=== PATIENT | female | born 1965 | race Caucasian/White ===

== ENCOUNTER 2020-03-18 10:03 | Emergency (ER) | payer MEDICARE, MEDICAID ==
[2020-03-18] MEDS ORDERED: LORazepam 2 MG/ML SDV IVPUSH ONE (10:47)
[2020-03-18] MEDS ORDERED: methylPREDNISolone Sodium Succinate 125 MG/2 ML SDV IVPUSH ONE (10:48)
[2020-03-18] MEDS ORDERED: Albuterol/Ipratropium 3.0-0.5 MG/3 ML Neb Soln NEB ONE (10:49)
--- NOTE | 2020-03-18 11:09 | EDM.PDOC ---
ED HPI GENERAL MEDICAL PROBLEM - General Chief Complaint: Respiratory Problem Stated Complaint: AMBULANCE Time Seen by Provider: 03/18/20 10:25 Source of Information: Reports: Patient, RN History Limitations: Reports: No Limitations - History of Present Illness INITIAL COMMENTS - FREE TEXT/NARRATIVE: 54 year old female with a PMH of heart failure, COPD, pneumonia, anxiety, depre ssion and GERD presents to the ER by ambulance for complaints of shortness of breath and anxiety. Patient reports she wake up this morning with a panic attack. She states that she takes clonazepam 1 mg 4 times daily and her last pill was yesterday morning. Patient reports she basically depends on her clonazepam to get through the day. She reports being shaky this morning to the point where she couldn't even take her nebulizer. COPD is oxygen dependent at home on 4 L oxygen nasal cannula.She was able to take her inhalers before calling the ambulance. She reports her shortness of breath has been present but got worsened without her anxiety flaring up. she quit smoking about 4 years ago. She has a refill for clonazepam at a pharmacy. She denies any fevers, chest pain, palpitations, leg swelling,sputum production, chills or sweats. She reports the beginning of dyskinesia which is being monitored by her psychiatrist as she is on Abilify and the dose is being tapered. She is also be worked on by her primary for sudden weight lost. Onset: Today Onset Date: 03/18/20 Onset Time: 08:00 Duration: Hour(s): Location: Reports: Chest Worsens with: Reports: Other (anxiety) Associated Symptoms: Reports: Shortness of Breath Treatments LITIGATION MANAGER: Reports: Breathing Treatments - Related Data Allergies Allergy/AdvReac Type Severity Reaction Status Date / Time tramadol Allergy Tremors Verified 03/18/20 10:14 morphine AdvReac Vomiting Verified 03/18/20 10:14 theophylline AdvReac Headache Verified 03/18/20 10:14 Home Meds: Home Meds ARIPiprazole [Abilify] 30 mg PO DAILY 04/09/18 [History] Omeprazole 40 mg PO DAILY 04/09/18 [History] Sertraline HCl [Zoloft] 150 mg PO DAILY 04/09/18 [History] Albuterol [Ventolin HFA] 2 puff INH Q6H PRN 09/17/18 [History] Albuterol/Ipratropium [DuoNeb 3.0-0.5 MG/3 ML] 1 vial INH Q6H PRN 09/17/18 [History] Budesonide 1 mg IH BID 09/17/18 [History] Calcium Carbonate/Vitamin D3 [Calcium 600-Vit D3 400 Tablet] 1 tab PO DAILY 09/17/18 [History] Cholecalciferol (Vitamin D3) [Vitamin D3] 1,000 units PO BID 09/17/18 [History] Formoterol Fumarate [Perforomist] 1 vial INH BID 09/17/18 [History] clonazePAM [Clonazepam] 1 mg PO QID 09/17/18 [History] estradioL [Estrace] 0.5 mg PO ASDIRECTED 09/17/18 [History] oxyCODONE ER [OxyCONTIN] 10 mg PO Q12H PRN 03/24/19 [History] ARIPiprazole [Aripiprazole] 15 mg PO DAILY 03/18/20 [History] Roflumilast [Daliresp] 500 mg PO DAILY 03/18/20 [History] Past Medical History HEENT History: Reports: None Cardiovascular History: Reports: Heart Failure Respiratory History: Reports: COPD, Pneumonia, Recurrent Gastrointestinal History: Reports: Gastritis, GERD, Hepatitis, PUD, Other (See Below) Other Gastrointestinal History: HX OF HEP C Genitourinary History: Reports: Other (See Below) Other Genitourinary History: OVERACTIVE BLADDER STARS COORDINATOR History: Reports: Musculoskeletal History: Neurological History: Reports: None Psychiatric History: Reports: Anxiety, Depression Endocrine/Metabolic History: Reports: None Hematologic History: Reports: None Immunologic History: Reports: None Oncologic (Cancer) History: Reports: None Dermatologic History: Reports: None - Infectious Disease History Infectious Disease History: Reports: Chicken Pox - Past Surgical History Head Surgeries/Procedures: Reports: None GI Surgical History: Reports: EGD, Hernia Repair/Other Other GI Surgeries/Procedures: hernia Female Surgical History: Reports: D&C, Hysterectomy Social & Family History - Family History Family Medical History: Noncontributory - Caffeine Use Caffeine Use: Reports: None - Living Situation & Occupation Living situation: Reports: Single, Alone Occupation: Disabled ED ROS GENERAL - Review of Systems Review Of Systems: Comprehensive ROS is negative, except as noted in HPI. ED EXAM, GENERAL - Physical Exam Exam: See Below Exam Limited By: No Limitations General Appearance: Alert, Anxious, Moderate Distress Eye Exam: Bilateral Eye: PERRL Ears: Normal External Exam, Normal Canal, Hearing Grossly Normal, Normal TMs Nose: Normal Inspection, Normal Mucosa, No Blood Throat/Mouth: Normal Inspection, Other (mild whites noted on the tongue but not on the roof or bucal mucosa of the mouth. Patient is being treated for thrush) Head: Atraumatic, Normocephalic Neck: Normal Inspection, Supple, Non-Tender, Full Range of Motion Respiratory/Chest: Decreased Breath Sounds, Crackles, Rhonchi, Wheezing. No: Rales, Accessory Muscle Use, Retractions, Prolonged Expiration Cardiovascular: Normal Peripheral Pulses, Regular Rate, Rhythm, No Edema, No JVD, No Murmur Peripheral Pulses: 2+: Posterior Tibial (L), Posterior Tibial (R), Dorsalis Pedis (L), Dorsalis Pedis (R) GI/Abdominal: Normal Bowel Sounds, Soft, Non-Tender Neurological: Alert, Oriented, CN II-XII Intact Psychiatric: Anxious Skin Exam: Warm, Intact Lymphatic: No Adenopathy Course - Vital Signs Last Recorded V/S: Last Vital Signs Temp 97.2 F 03/18/20 10:03 Pulse 105 H 03/18/20 10:03 Resp 24 H 03/18/20 10:03 BP 189/112 H 03/18/20 10:03 Pulse Ox 98 03/18/20 10:03 - Orders/Labs/Meds Orders: Active Orders 24 hr Category Date Time Status RT Aerosol Therapy [RC] ASDIRECTED Care 03/18/20 10:49 Active Chest 2V [CR] Urgent Exams 03/18/20 10:41 Ordered CBC WITH AUTO DIFF [HEME] Stat Lab 03/18/20 10:46 Received CMP [COMPREHENSIVE METABOLIC PN,CMP] [CHEM] Stat Lab 03/18/20 10:46 Received Albuterol/Ipratropium [DuoNeb 3.0-0.5 MG/3 ML] Med 03/18/20 10:49 Once 3 ml NEB ONETIME ONE Meds: Medications Discontinued Medications Generic Name Dose Route Start Last Admin Trade Name Freq PRN Reason Stop Dose Admin Lorazepam 1 mg 03/18/20 10:47 Ativan IVPUSH 03/18/20 10:48 ONETIME ONE Methylprednisolone Sodium Succinate 125 mg 03/18/20 10:48 Solu-Medrol IVPUSH 03/18/20 10:49 ONETIME ONE - Re-Assessments/Exams Free Text/Narrative Re-Assessment/Exam: 54 year olf female who presents to the ER with complaints of anxiety and SOB. She was administered Ativan 1 mg IV as she had missed four doses of her clonazepam 1 mg and also Solumedrol and Duoned. Patient reports relief symptoms. Labs and chest xray results reviewed with patient. Initiated prednisone 40 mg daily x 5 days. She will pickup her clonazepam. Followup with PCP in 2-3 days. Continue medications as prescribed by PCP. Patient verbalized understanding. Departure - Departure Time of Disposition: 12:21 Disposition: Home, Self-Care 01 Condition: Good Clinical Impression: Anxiety attack COPD (chronic obstructive pulmonary disease) Qualifiers: COPD type: unspecified COPD Qualified Code(s): J44.9 - Chronic obstructive pulmonary disease, unspecified - Discharge Information Instructions: Chronic Obstructive Pulmonary Disease Exacerbation, [id number], Living With Anxiety Additional Instructions: Initiated prednisone 40 mg daily x 5 days. She will pickup her clonazepam from the pharmacy. Continue home medications as per PCP. Followup with PCP in 2-3 days. Sepsis Event Note (ED) - Evaluation Sepsis Screening Result: Possible Sepsis Risk - Focused Exam Vital Signs: Vital Signs Temp Pulse Resp BP Pulse Ox 03/18/20 10:03 97.2 F 105 H 24 H 189/112 H 98 - My Orders Last 24 Hours: My Active Orders 03/18/20 10:41 Chest 2V [CR] Urgent 03/18/20 10:46 CBC WITH AUTO DIFF [HEME] Stat CMP [COMPREHENSIVE METABOLIC PN,CMP] [CHEM] Stat 03/18/20 10:49 RT Aerosol Therapy [RC] ASDIRECTED Albuterol/Ipratropium [DuoNeb 3.0-0.5 MG/3 ML] 3 ml NEB ONETIME ONE - Assessment/Plan Last 24 Hours: My Active Orders 03/18/20 10:41 Chest 2V [CR] Urgent 03/18/20 10:46 CBC WITH AUTO DIFF [HEME] Stat CMP [COMPREHENSIVE METABOLIC PN,CMP] [CHEM] Stat 03/18/20 10:49 RT Aerosol Therapy [RC] ASDIRECTED Albuterol/Ipratropium [DuoNeb 3.0-0.5 MG/3 ML] 3 ml NEB ONETIME ONE
[2020-03-18 11:12] LABS: ANION GAP 4.3 mEq/L (7-13); CHLORIDE,CL 95 mmol/L (98-107); SODIUM,NA 140 mmol/L (136-145)
--- NOTE | 2020-03-18 11:36 | CR ---
EXAMINATION: Chest 1V Frontal SEX: Female AGE: 54 years CLINICAL HISTORY: 54-year-old female complaining of shortness of breath. History "severe COPD". Comparison exam 09 July 2018. Interpretation: Generalized air trapping. Symmetrically prominent proximal pulmonary artery segments (pulmonary artery hypertension?). Normal cardiac silhouette. (External aging room operator leads). Left-sided aortic arch. No pulmonary vascular congestion, cephalization of flow, alveolar edema or dependent new pleural fluid accumulation. No new lung mass, hilar lymphadenopathy or focal lobar pneumonia. No atelectasis/collapse. No pneumothorax or pneumomediastinum. Midline tracheal bronchial airway unremarkable. CONCLUSION: No acute new cardiopulmonary abnormality since 09 July 2018 CXR. COPD.
== END 2020-03-18 12:57 | disposition home or self-care (01) ==
LOC: DL.ED 10:03
DX: J44.9 Chronic obstructive pulmonary disease, unspecified (principal); F41.9 Anxiety disorder, unspecified; I50.9 Heart failure, unspecified; K21.9 Gastro-esophageal reflux disease without esophagitis; F32.9 Major depressive disorder, single episode, unspecified; Z88.5 Allergy status to narcotic agent; Z88.1 Allergy status to other antibiotic agents; Z79.899 Other long term (current) drug therapy
CPT/HCPCS: 36415; 71045; 80053; 85025; 94640; 96374; 96375; 99285; J2060; J2930; 99284; J7620-GY

== ENCOUNTER 2021-04-13 10:11 | Emergency (ER) | payer MEDICARE, MEDICAID ==
[2021-04-13] MEDS ORDERED: Sodium Chloride 0.9% 10 ML Syringe FLUSH PRN (10:48)
[2021-04-13] MEDS ORDERED: LORazepam 2 MG/ML SDV IVPUSH ONE (10:53)
[2021-04-13 11:20] LABS: ANION GAP 9.4 mEq/L (7-13); CHLORIDE,CL 97 mmol/L (98-107); SODIUM,NA 139 mmol/L (136-145)
[2021-04-13] MEDS ORDERED: Iopamidol 612 MG/ML 100 ML Bottle IVPUSH ONE (11:24)
[2021-04-13] MEDS ORDERED: Sodium Chloride 0.9% 1,000 ML IV ONE (11:26)
[2021-04-13] MEDS ORDERED: Magnesium Sulfate/Water 2 GM in Premix Bag 1 BAG IV ONE (11:58)
--- NOTE | 2021-04-13 12:32 | CT ---
PROCEDURE INFORMATION: Exam: CT Chest With Contrast; Diagnostic Exam date and time: 04/13/2021 11:32 AM Age: 55 years old Clinical indication: Other: Left upper abdominal pain, unexplained wt loss TECHNIQUE: Imaging protocol: Diagnostic computed tomography of the chest with contrast. Radiation optimization: All CT scans at this facility use at least one of these dose optimization techniques: automated exposure control; mA and/or kV adjustment per patient size (includes targeted exams where dose is matched to clinical indication); or iterative reconstruction. Contrast material: ISOVUE 300; Contrast volume: 75 ml; Contrast route: INTRAVENOUS (IV); COMPARISON: CT Chest Abdomen Pelvis w Cont 07/25/2019 10:29 AM FINDINGS: Limitations: None. Trachea: Normal. Bronchial tree: Normal. Lungs: Diffuse centrilobular pulmonary emphysema and lung hyperinflation. The lungs are clear. Pleural spaces: Normal. Heart: Normal. Coronary arteries: Normal. Aorta: Normal caliber. No defects. Minimal atherosclerosis. Great vessels off aortic arch: Very mild atherosclerosis limited to the origins of the great vessels, also extending into the most proximal portions. Lymph nodes: No enlarged or otherwise suspicious lymph nodes. Bones/joints: No acute fracture or suspicious osseous lesion. Soft tissues: Normal. IMPRESSION: Emphysema and mild atherosclerosis. No acute disease or suspicious finding. PROCEDURE INFORMATION: Exam: CT Abdomen And Pelvis With Contrast Exam date and time: 04/13/2021 11:32 AM Age: 55 years old Clinical indication: Other: Left upper abdominal pain, unexplained wt loss TECHNIQUE: Imaging protocol: Computed tomography of the abdomen and pelvis with contrast. The study was augmented with delayed contrast-enhanced imaging of the kidneys. Radiation optimization: All CT scans at this facility use at least one of these dose optimization techniques: automated exposure control; mA and/or kV adjustment per patient size (includes targeted exams where dose is matched to clinical indication); or iterative reconstruction. Contrast material: ISOVUE 300; Contrast volume: 75 ml; Contrast route: INTRAVENOUS (IV); COMPARISON: CT Chest Abdomen Pelvis w Cont 07/25/2019 10:29 AM FINDINGS: Limitations: None. Liver: Normal. Gallbladder and bile ducts: Normal. Pancreas: Normal. Spleen: Normal. Adrenal glands: Normal. Kidneys and ureters: Chronic unchanged 6 mm uniformly low-density right upper pole renal cortical lesion, otherwise, normal kidneys and ureters. Stomach and bowel: Normal. Appendix: No evidence of appendicitis. Intraperitoneal space: No ascites, pneumoperitoneum or peritoneal lesion. Vasculature: Mild atherosclerosis of the abdominal aorta and branch vessels. The vessels have normal caliber and there are no occlusions, dissection or suspicious stenosis. Lymph nodes: None enlarged or otherwise suspicious. Urinary bladder: Normal. Reproductive: Absent uterus. Ovaries are not identified. Bones/joints: No acute fracture or suspicious osseous lesion. Soft tissues: No mass or abdominal hernia. IMPRESSION: 1. No acute abnormalities or suspicious findings. No mass or adenopathy. 2. Incidental findings include atherosclerosis and a chronic subcentimeter right renal cortical lesion that is presumed benign and may be ignored.
--- NOTE | 2021-04-13 13:16 | EDM.PDOC ---
"Scribed by Jaycee Polanco 04/13/21 1266 for Toro Osorio MD ED HPI GENERAL MEDICAL PROBLEM - General Chief Complaint: Abdominal Pain Stated Complaint: COPD / TROUBLE BREATHING / LOW POTASSIUM Time Seen by Provider: 04/13/21 10:37 Source of Information: Reports: Patient, RN Notes Reviewed - History of Present Illness INITIAL COMMENTS - FREE TEXT/NARRATIVE: 55 y/o F c/o L upper quad abd pn x 1 week. The pain is constant, 7/10, sharp in nature and radiates over the entire abd. Reports normal food intake and normal urination and defecation. Hx of H. Pylori, peptic ulcers, anxiety, hysterectomy, COPD. Denies fever, NVD, cough, chills, drugs, etoh, cp, lau, vision prob, flank pain, pelvic pn, extremity pain. Duration: Week(s): Location: Reports: Abdomen Quality: Reports: Sharp Severity: Moderate Improves with: Reports: None Worsens with: Reports: Movement Associated Symptoms: Reports: No Other Symptoms abdomen Pain Score (Numeric/FACES): 7 - Related Data Allergies Allergy/AdvReac Type Severity Reaction Status Date / Time tramadol Allergy Tremors Verified 04/13/21 10:31 morphine AdvReac Vomiting Verified 04/13/21 10:31 theophylline AdvReac Headache Verified 04/13/21 10:31 Home Meds: Home Meds Omeprazole 40 mg PO DAILY 04/09/18 [History] Sertraline HCl [Zoloft] 150 mg PO DAILY 04/09/18 [History] Albuterol [Ventolin HFA] 2 puff INH Q6H PRN 09/17/18 [History] Albuterol/Ipratropium [DuoNeb 3.0-0.5 MG/3 ML] 1 vial INH Q6H PRN 09/17/18 [History] Budesonide 1 mg IH BID 09/17/18 [History] Calcium Carbonate/Vitamin D3 [Calcium 600-Vit D3 400 Tablet] 1 tab PO DAILY 09/17/18 [History] Cholecalciferol (Vitamin D3) [Vitamin D3] 1,000 units PO BID 09/17/18 [History] Formoterol Fumarate [Perforomist] 1 vial INH BID 09/17/18 [History] clonazePAM [Clonazepam] 1 mg PO QID 09/17/18 [History] estradioL [Estrace] 0.5 mg PO ASDIRECTED 09/17/18 [History] oxyCODONE ER [OxyCONTIN] 10 mg PO Q12H PRN 03/24/19 [History] Roflumilast [Daliresp] 500 mg PO DAILY 03/18/20 [History] Brexpiprazole [Rexulti] 0.5 mg PO DAILY 04/13/21 [History] Potassium Chloride 20 meq PO DAILY 04/13/21 [History] Past Medical History HEENT History: Reports: None Cardiovascular History: Reports: Heart Failure Respiratory History: Reports: COPD, Pneumonia, Recurrent Gastrointestinal History: Reports: Gastritis, GERD, Hepatitis, PUD, Other (See Below) Other Gastrointestinal History: HX OF HEP C Genitourinary History: Reports: Other (See Below) Other Genitourinary History: OVERACTIVE 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: Musculoskeletal History: Other Musculoskeletal History: Tardive Dyskenesia Neurological History: Reports: None Psychiatric History: Reports: Anxiety, Depression Endocrine/Metabolic History: Reports: None Hematologic History: Reports: None Immunologic History: Reports: None Other Immunologic History: hx of Hepatitis C Oncologic (Cancer) History: Reports: None Dermatologic History: Reports: None - Infectious Disease History Infectious Disease History: Reports: Chicken Pox - Past Surgical History Head Surgeries/Procedures: Reports: None GI Surgical History: Reports: EGD, Hernia Repair/Other Other GI Surgeries/Procedures: hernia Female Surgical History: Reports: D&C, Hysterectomy Social & Family History - Family History Family Medical History: No Pertinent Family History - Caffeine Use Caffeine Use: Reports: None - Living Situation & Occupation Living situation: Reports: Single, Alone Occupation: Disabled ED ROS GENERAL - Review of Systems Review Of Systems: Comprehensive ROS is negative, except as noted in HPI. ED EXAM, GI/ABD - Physical Exam Exam: See Below Exam Limited By: No Limitations General Appearance: Alert Eyes: Bilateral: Normal Appearance Nose: Normal Inspection, Normal Mucosa Throat/Mouth: Normal Lips, Normal Teeth, Other (Dry mucus membranes, tongue dry and furrowed) Head: Atraumatic, Normocephalic Neck: Supple, Non-Tender Respiratory/Chest: No Respiratory Distress, Lungs Clear, Normal Breath Sounds Cardiovascular: Normal Peripheral Pulses, Regular Rate, Rhythm, No Edema, No JVD GI/Abdominal Exam: Soft, No Organomegaly, Tender (Female) Exam: Deferred Rectal (Female) Exam: Deferred Back Exam: Normal Inspection, Full Range of Motion Extremities: Normal Inspection, Normal Range of Motion, No Pedal Edema Neurological: Alert, Oriented Psychiatric: Anxious Skin Exam: Warm, Dry, Intact Course - Vital Signs Last Recorded V/S: Last Vital Signs Temp 98.0 F 04/13/21 10:23 Pulse 124 H 04/13/21 10:23 Resp 24 H 04/13/21 10:23 BP 119/95 H 04/13/21 10:23 Pulse Ox 97 04/13/21 10:23 - Orders/Labs/Meds Orders: Active Orders 24 hr Category Date Time Status Peripheral IV Care [RC] . DIRECTED Care 04/13/21 10:49 Active UA RFX BEENA AND CULT IF INDIC [URIN] Stat Lab 04/13/21 13:00 Received Magnesium Sulfate/Water [Magnesium Sulfate in Water 2 Med 04/13/21 11:58 Active GM/50 ML] 2 gm Premix Bag 1 bag IV ONETIME Sodium Chloride 0.9% [Saline Flush] Med 04/13/21 10:48 Active 10 ml FLUSH ASDIRECTED PRN Peripheral IV Insertion Adult [OM.PC] Stat Oth 04/13/21 10:49 Ordered Medication Orders Magnesium Sulfate 2 gm/ Premix 50 mls @ 25 mls/hr IV ONETIME ONE Stop: 04/13/21 13:57 Last Admin: 04/13/21 12:07 Dose: 25 mls/hr Documented by: XOCHITL Sodium Chloride (Sodium Chloride 0.9% 10 Ml Syringe) 10 ml FLUSH ASDIRECTED PRN PRN Reason: Keep Vein Open Last Admin: 04/13/21 11:14 Dose: 10 ml Documented by: XOCHITL Labs: Laboratory Tests 04/13/21 04/13/21 04/13/21 Range/Units 10:46 10:46 10:46 WBC 7.5 (5.0-10.0) 10^3/uL RBC 4.56 (4.2-5.4) 10^6/uL Hgb 13.9 (12.0-16.0) g/dL Hct 42.9 (37.0-47.0) % MCV 94.1 (80-100) fL MCH 30.5 (27.0-34.0) pg MCHC 32.4 L (33.0-35.0) g/dL Plt Count 269 (150-450) 10^3/uL Neut % (Auto) 80.9 H (42.2-75.2) % Lymph % (Auto) 12.2 L (20.5-50.1) % [place] % (Auto) 5.6 (2-8) % Eos % (Auto) 0.8 L (1.0-3.0) % Baso % (Auto) 0.5 (0.0-1.0) % Sodium 139 (136-145) mmol/L Potassium 4.4 (3.5-5.1) mmol/L Chloride 97 L (98-107) mmol/L Carbon Dioxide 37 H (21-32) mmol/L Anion Gap 9.4 (7-13) mEq/L BUN 10 (7-18) mg/dL Creatinine 0.56 (0.55-1.02) mg/dL Est Cr Clr Drug Dosing 69.74 mL/min Estimated GFR (MDRD) > 60 BUN/Creatinine Ratio 17.9 (No establ ref range) Glucose 118 H (70-99) mg/dL Lactic Acid 0.8 (0.4-2.0) mmol/L Calcium 9.0 (8.5-10.1) mg/dL Phosphorus 3.5 (2.6-4.7) mg/dL Magnesium 1.6 L (1.8-2.4) mg/dL Total Bilirubin 0.4 (0.2-1.0) mg/dL AST 18 (15-37) U/L ALT 24 (14-59) U/L Alkaline Phosphatase 85 (46-116) U/L Total Protein 7.6 (6.4-8.2) g/dL Albumin 3.9 (3.4-5.0) g/dL Globulin 3.7 Albumin/Globulin Ratio 1.1 Amylase 45 (25-115) U/L Lipase 86 (73-393) U/L Urine Color (YELLOW) Urine Appearance (CLEAR) Urine pH (5.0-9.0) Ur Specific [place] (1.005-1.030) Urine Protein (NEGATIVE) Urine Glucose (UA) (NEGATIVE) Urine Ketones (NEGATIVE) Urine Occult Blood (NEGATIVE) Urine Nitrite (NEGATIVE) Urine Bilirubin (NEGATIVE) Urine Urobilinogen (0.2-1.0) mg/dL Ur Leukocyte Esterase (NEGATIVE) 04/13/21 Range/Units 13:00 WBC (5.0-10.0) 10^3/uL RBC (4.2-5.4) 10^6/uL Hgb (12.0-16.0) g/dL Hct (37.0-47.0) % MCV (80-100) fL MCH (27.0-34.0) pg MCHC (33.0-35.0) g/dL Plt Count (150-450) 10^3/uL Neut % (Auto) (42.2-75.2) % Lymph % (Auto) (20.5-50.1) % [place] % (Auto) (2-8) % Eos % (Auto) (1.0-3.0) % Baso % (Auto) (0.0-1.0) % Sodium (136-145) mmol/L Potassium (3.5-5.1) mmol/L Chloride (98-107) mmol/L Carbon Dioxide (21-32) mmol/L Anion Gap (7-13) mEq/L BUN (7-18) mg/dL Creatinine (0.55-1.02) mg/dL Est Cr Clr Drug Dosing mL/min Estimated GFR (MDRD) BUN/Creatinine Ratio (No establ ref range) Glucose (70-99) mg/dL Lactic Acid (0.4-2.0) mmol/L Calcium (8.5-10.1) mg/dL Phosphorus (2.6-4.7) mg/dL Magnesium (1.8-2.4) mg/dL Total Bilirubin (0.2-1.0) mg/dL AST (15-37) U/L ALT (14-59) U/L Alkaline Phosphatase (46-116) U/L Total Protein (6.4-8.2) g/dL Albumin (3.4-5.0) g/dL Globulin Albumin/Globulin Ratio Amylase (25-115) U/L Lipase (73-393) U/L Urine Color Yellow (YELLOW) Urine Appearance Clear (CLEAR) Urine pH 7.0 (5.0-9.0) Ur Specific [place] 1.015 (1.005-1.030) Urine Protein Negative (NEGATIVE) Urine Glucose (UA) Negative (NEGATIVE) Urine Ketones 40 H (NEGATIVE) Urine Occult Blood Small H (NEGATIVE) Urine Nitrite Negative (NEGATIVE) Urine Bilirubin Negative (NEGATIVE) Urine Urobilinogen 0.2 (0.2-1.0) mg/dL Ur Leukocyte Esterase Negative (NEGATIVE) Meds: Medications Generic Name Dose Route Start Last Admin Trade Name Freq PRN Reason Stop Dose Admin Magnesium Sulfate 2 gm/ Premix 50 mls @ 25 mls/hr 04/13/21 11:58 04/13/21 12:07 IV 04/13/21 13:57 25 mls/hr ONETIME ONE Administration Sodium Chloride 10 ml 04/13/21 10:48 04/13/21 11:14 Sodium Chloride 0.9% 10 Ml Syringe FLUSH 10 ml ASDIRECTED PRN Administration Keep Vein Open Discontinued Medications Generic Name Dose Route Start Last Admin Trade Name Freq PRN Reason Stop Dose Admin Sodium Chloride 1,000 mls @ 999 mls/hr 04/13/21 11:26 04/13/21 12:09 Normal Saline IV 04/13/21 12:26 200 mls/hr .BOLUS ONE Infusion Iopamidol 100 ml 04/13/21 11:24 04/13/21 11:54 Iopamidol 612 Mg/Ml 100 Ml Bottle IVPUSH 04/13/21 11:25 75 ml ONETIME ONE Administration Lorazepam 1 mg 04/13/21 10:53 04/13/21 11:13 Lorazepam 2 Mg/Ml Sdv IVPUSH 04/13/21 10:54 1 mg ONETIME ONE Administration - Radiology Interpretation Free Text/Narrative:: [facility] Final Radiology Report Call: [phone] assistance Online chat: [email or web address] Name: BETI LLAMAS Age: 55Years F Date: 04/13/2021 SSN: -- : 1965 Study: CT CHEST ABDOMEN PELVIS W CONT Requesting Physician: TORO OSORIO Images: [phone] Addl Studies: [id number] - CT CHEST W (1) Provided Clinical History: Left upper abdominal pain, unexplained wt loss Contrast: With Contrast Medium: Isovue 300 Contrast Amount: 75 mL Contrast Method: Intravenous (IV) Page 1 of 3 PROCEDURE INFORMATION: Exam: CT Chest With Contrast; Diagnostic Exam date and time: 04/13/2021 11:32 AM Age: 55 years old Clinical indication: Other: Left upper abdominal pain, unexplained wt loss TECHNIQUE: Imaging protocol: Diagnostic computed tomography of the chest with contrast. Radiation optimization: All CT scans at this facility use at least one of these dose optimization techniques: automated exposure control; mA and/or kV adjustment per patient size (includes targeted exams where dose is matched to clinical indication); or iterative reconstruction. Contrast material: ISOVUE 300; Contrast volume: 75 ml; Contrast route: INTRA VENOUS (IV); COMPARISON: CT Chest Abdomen Pelvis w Cont 07/25/2019 10:29 AM FINDINGS: Limitations: None. Trachea: Normal. Bronchial tree: Normal. Lungs: Diffuse centrilobular pulmonary emphysema and lung hyperinflation. The lungs are clear. Pleural spaces: Normal. Heart: Normal. Coronary arteries: Normal. Aorta: Normal caliber. No defects. Minimal atherosclerosis. Great vessels off aortic arch: Very mild atherosclerosis limited to the origins of the great vessels, also extending into the most proximal portions. Lymph nodes: No enlarged or otherwise suspicious lymph nodes. BETI LLAMAS | Final Radiology Report Page 2 of 3 Bones/joints: No acute fracture or suspicious osseous lesion. Soft tissues: Normal. IMPRESSION: Emphysema and mild atherosclerosis. No acute disease or suspicious finding. PROCEDURE INFORMATION: Exam: CT Abdomen And Pelvis With Contrast Exam date and time: 04/13/2021 11:32 AM Age: 55 years old Clinical indication: Other: Left upper abdominal pain, unexplained wt loss TECHNIQUE: Imaging protocol: Computed tomography of the abdomen and pelvis with contrast. The study was augmented with delayed contrast-enhanced imaging of the kidneys. Radiation optimization: All CT scans at this facility use at least one of these dose optimization techniques: automated exposure control; mA and/or kV adjustment per patient size (includes targeted exams where dose is matched to clinical indication); or iterative reconstruction. Contrast material: ISOVUE 300; Contrast volume: 75 ml; Contrast route: INTRAVENOUS (IV); COMPARISON: CT Chest Abdomen Pelvis w Cont 07/25/2019 10:29 AM FINDINGS: Limitations: None. Liver: Normal. Gallbladder and bile ducts: Normal. Pancreas: Normal. Spleen: Normal. Adrenal glands: Normal. Kidneys and ureters: Chronic unchanged 6 mm uniformly low-density right upper pole renal cortical lesion, otherwise, normal kidneys and ureters. Stomach and bowel: Normal. Appendix: No evidence of appendicitis. Intraperitoneal space: No ascites, pneumoperitoneum or peritoneal lesion. Vasculature: Mild atherosclerosis of the abdominal aorta and branch vessels. The vessels have normal caliber and there are no occlusions, dissection or suspicious stenosis. Lymph nodes: None enlarged or otherwise suspicious. Urinary bladder: Normal. Reproductive: Absent uterus. Ovaries are not identified. Bones/joints: No acute fracture or suspicious osseous lesion. Soft tissues: No mass or abdominal hernia. IMPRESSION: BETI LLAMAS | Final Radiology Report CONFIDENTIALITY STATEMENT This report is intended only for use by the referring physician, and only in accordance with law. If you received this in error, call [phone]. Page 3 of 3 1. No acute abnormalities or suspicious findings. No mass or adenopathy. 2. Incidental findings include atherosclerosis and a chronic subcentimeter right renal cortical lesion that is presumed benign and may be ignored. Thank you for allowing us to participate in the care of your patient. Dictated and Authenticated by: Ángel Lilly MD 04/13/2021 12:31 PM Central Time ([place] & [place]) Departure - Departure Time of Disposition: 13:13 Disposition: Home, Self-Care 01 Condition: Good Clinical Impression: Microscopic hematuria Abdominal pain Qualifiers: Abdominal location: left upper quadrant Qualified Code(s): R10.12 - Left upper quadrant pain - Discharge Information *PRESCRIPTION DRUG MONITORING PROGRAM REVIEWED*: Not Applicable *COPY OF PRESCRIPTION DRUG MONITORING REPORT IN PATIENT AMRIT: Not Applicable Instructions: Abdominal Pain, Adult, [id number], Hematuria, Adult Forms: ED Department Discharge Additional Instructions: Follow up in clinic with your primary doctor. Ask your doctor about a urine screening test called NMP22 to evaluate the trace amount of blood in your urine. Ask your doctor about a referral to a process description writer for evaluation of your abdominal pain. Sepsis Event Note (ED) - Evaluation Sepsis Screening Result: No Definite Risk - Focused Exam Vital Signs: Vital Signs Temp Pulse Resp BP Pulse Ox 04/13/21 10:23 98.0 F 124 H 24 H 119/95 H 97 - My Orders Last 24 Hours: My Active Orders 04/13/21 10:48 Sodium Chloride 0.9% [Saline Flush] 10 ml FLUSH ASDIRECTED PRN 04/13/21 10:49 Peripheral IV Care [RC] . DIRECTED Peripheral IV Insertion Adult [OM.PC] Stat 04/13/21 11:58 Magnesium Sulfate/Water [Magnesium Sulfate in Water 2 GM/50 ML] 2 gm Premix Bag 1 bag IV ONETIME 04/13/21 13:00 UA RFX BEENA AND CULT IF INDIC [URIN] Stat - Assessment/Plan Last 24 Hours: My Active Orders 04/13/21 10:48 Sodium Chloride 0.9% [Saline Flush] 10 ml FLUSH ASDIRECTED PRN 04/13/21 10:49 Peripheral IV Care [RC] . DIRECTED Peripheral IV Insertion Adult [OM.PC] Stat 04/13/21 11:58 Magnesium Sulfate/Water [Magnesium Sulfate in Water 2 GM/50 ML] 2 gm Premix Bag 1 bag IV ONETIME 04/13/21 13:00 UA RFX BEENA AND CULT IF INDIC [URIN] Stat I have read and agree with the documentation that has been completed regarding this visit. By signing this record, I attest that the documentation was completed in my physical presence and is an accurate record of the encounter."
== END 2021-04-13 14:59 | disposition home or self-care (01) ==
LOC: DL.ED 10:11
DX: R10.12 Left upper quadrant pain (principal); R31.29 Other microscopic hematuria; I50.9 Heart failure, unspecified; J44.9 Chronic obstructive pulmonary disease, unspecified; K21.9 Gastro-esophageal reflux disease without esophagitis; Z88.8 Allergy status to other drugs, medicaments and biological substances; Z79.899 Other long term (current) drug therapy
CPT/HCPCS: 36415; 71260; 74177; 80053; 81001; 82150; 83605; 83690; 83735; 84100; 85025; 96365; 96366; 96375; 99284; J2060; J3475; J7030; Q9967

== ENCOUNTER 2024-12-11 13:49 | Emergency (ER) | payer MEDICARE, MEDICAID ==
[2024-12-11] MEDS ORDERED: Sodium Chloride 0.9% 10 ML Syringe FLUSH PRN (13:57)
[2024-12-11 14:18] LABS: BASOPHILS PERCENT AUTO 0.3 % (0.0-1.0); EOSINOPHILS PERCENT AUTO 0.8 % (1.0-3.0); HEMATOCRIT 41.2 % (37.0-47.0); HEMOGLOBIN 12.9 g/dL (12.0-16.0); LYMPHOCYTES PERCENT AUTO 8.7 % (20.5-50.1); MEAN CORPUSCULAR HEMOGLOBIN 31.6 pg (27.0-34.0); MEAN CORPUSCULAR HGB CONC 31.3 g/dL (33.0-35.0); MONOCYTES PERCENT AUTO 6.8 % (2-8); NEUTROPHILS PERCENT AUTO 83.4 % (42.2-75.2); PLATELET COUNT,PLT 210 10^3/uL (150-450); RED BLOOD CELL COUNT 4.08 10^6/uL (4.2-5.4); WHITE BLOOD CELL COUNT,WBC 10.9 10^3/uL (5.0-10.0)
[2024-12-11 14:38] LABS: B-TYPE NATRIURETIC PEPTIDE,BNP 69 pg/ml (0-100)
[2024-12-11 14:40] LABS: A/G RATIO 0.9; ALANINE AMINOTRANSFERASE,ALT 18 U/L (14-59); ALBUMIN 3.6 g/dL (3.4-5.0); ALKALINE PHOSPHATASE 65 U/L (46-116); ANION GAP 7.7 mEq/L (7-13); ASPARTATE AMNIOTRANSFERASE,AST 16 U/L (15-37); BILIRUBIN TOTAL 0.5 mg/dL (0.2-1.0); BLOOD UREA NITROGEN,BUN 17 mg/dL (7-18); BUN/CREATININE RATIO 24.3 (No establ ref range); C-REACTIVE PROTEIN 6.17 ng/dL (<=0.50); CALCIUM 9.9 mg/dL (8.5-10.1); CHLORIDE,CL 93 mmol/L (98-107); GLUCOSE RANDOM 92 mg/dL (70-99); INR 0.9 (0.9-1.2); MAGNESIUM 1.3 mg/dL (1.8-2.4); POTASSIUM,K 4.7 mmol/L (3.5-5.1); PROTEIN TOTAL,TP 7.5 g/dL (6.4-8.2); PROTHROMBIN TIME 9.9 SEC (9.0-12.0); PTT,PARTIAL THROMBOPLSTIN TIME 23.9 SEC (22.0-34.0); SODIUM,NA 141 mmol/L (136-145)
[2024-12-11 14:43] LABS: LACTIC ACID 0.8 mmol/L (0.4-2.0)
[2024-12-11 14:44] LABS: ESTIMATED GFR 100 mL/min (>=60)
[2024-12-11 14:45] LABS: CARBON DIOXIDE,CO2 45 mmol/L (21-32)
[2024-12-11] MEDS: Sodium Chloride 0.9% 1,000 ML IV ONE (14:48)
[2024-12-11] MEDS: Magnesium Sulf/Wat 4 GM/100 mL 4 GM in Premix Bag 1 BAG IV ONE (14:53)
[2024-12-11] MEDS: WAT ONE (15:07)
[2024-12-11] MEDS: MAGNESIUM SULF ONE (15:07)
[2024-12-11] MEDS: Ipratropium 0.02% 0.5 MG/2.5 ML Neb Soln NEB ONE (15:12)
[2024-12-11] MEDS: Nystatin Susp 100,000 Unit/ML 5 ML UD Cup PO ONE (15:12)
[2024-12-11 16:52] LABS: COLOR,URINE YELLOW (YELLOW)
[2024-12-11 16:53] LABS: APPEARANCE,URINE CLEAR (CLEAR); BILIRUBIN,URINE SMALL (NEGATIVE); GLUCOSE,URINE NEGATIVE (NEGATIVE); KETONES,URINE >=160 (NEGATIVE); LEUKOCYTE ESTERASE,URINE NEGATIVE (NEGATIVE); NITRITE,URINE NEGATIVE (NEGATIVE); OCCULT BLOOD,URINE SMALL (NEGATIVE); PH,URINE 6.5 (5.0-9.0); PROTEIN,URINE NEGATIVE (NEGATIVE); UROBILINOGEN,URINE 0.2 mg/dL (0.2-1.0)
[2024-12-11 17:26] LABS: WBC,URINE 0-5 /HPF (0-5/HPF)
[2024-12-11] MEDS: Fluconazole 100 MG Tab PO ONE (17:26)
[2024-12-11 17:27] LABS: BACTERIA,URINE FEW /HPF (0-FEW/HPF); EPITHELIAL CELLS,URINE FEW /HPF (NOT SEEN)
== END 2024-12-11 17:45 | disposition home or self-care (01) ==
LOC: DL.ED 13:49
DX: E83.42 Hypomagnesemia (principal); B37.0 Candidal stomatitis; I50.9 Heart failure, unspecified; J44.9 Chronic obstructive pulmonary disease, unspecified; F17.210 Nicotine dependence, cigarettes, uncomplicated; Z88.5 Allergy status to narcotic agent; Z79.899 Other long term (current) drug therapy; Z79.51 Long term (current) use of inhaled steroids
CPT/HCPCS: 36415; 71045; 80053; 81001; 83605; 83735; 83880; 84484; 85025; 85610; 85730; 86140; 87040; 87428; 93005; 96365; 96366; 99285; A9270; J3475; J7030; J3490

== ENCOUNTER 2025-01-20 13:44 | Emergency (ER) | payer MEDICARE, OTHER ==
[2025-01-20] MEDS ORDERED: Sodium Chloride 0.9% 10 ML Syringe FLUSH PRN (14:29)
[2025-01-20 15:05] LABS: BASOPHILS PERCENT AUTO 1.3 % (0.0-1.0); HEMATOCRIT 41.1 % (37.0-47.0); HEMOGLOBIN 13.4 g/dL (12.0-16.0); LYMPHOCYTES PERCENT AUTO 28.5 % (20.5-50.1); MEAN CORPUSCULAR HEMOGLOBIN 33.2 pg (27.0-34.0); MEAN CORPUSCULAR HGB CONC 32.6 g/dL (33.0-35.0); MEAN CORPUSCULAR VOLUME 101.7 fL (80-100); MONOCYTES PERCENT AUTO 8.9 % (2-8); NEUTROPHILS PERCENT AUTO 57.3 % (42.2-75.2); PLATELET COUNT,PLT 242 10^3/uL (150-450); RED BLOOD CELL COUNT 4.04 10^6/uL (4.2-5.4); WHITE BLOOD CELL COUNT,WBC 3.7 10^3/uL (5.0-10.0)
[2025-01-20 15:27] LABS: A/G RATIO 0.9; ALANINE AMINOTRANSFERASE,ALT 16 U/L (14-59); ALBUMIN 3.4 g/dL (3.4-5.0); ALKALINE PHOSPHATASE 56 U/L (46-116); ASPARTATE AMNIOTRANSFERASE,AST 17 U/L (15-37); BILIRUBIN TOTAL 0.2 mg/dL (0.2-1.0); BLOOD UREA NITROGEN,BUN 12 mg/dL (7-18); CALCIUM 9.5 mg/dL (8.5-10.1); CHLORIDE,CL 97 mmol/L (98-107); CREATININE 0.48 mg/dL (0.55-1.02); EST CRCL DRUG DOSING (CG) 69.58 mL/min; GLUCOSE RANDOM 116 mg/dL (70-99); MAGNESIUM 1.8 mg/dL (1.8-2.4); POTASSIUM,K 4.4 mmol/L (3.5-5.1); SODIUM,NA 144 mmol/L (136-145)
[2025-01-20 15:28] LABS: INR 0.9 (0.9-1.2); PROTHROMBIN TIME 9.2 SEC (9.0-12.0); PTT,PARTIAL THROMBOPLSTIN TIME 24.8 SEC (22.0-34.0)
[2025-01-20 15:30] LABS: LACTIC ACID 0.4 mmol/L (0.4-2.0)
[2025-01-20 15:31] LABS: ANION GAP 6.39999 mEq/L (7-13); C-REACTIVE PROTEIN < 0.50 ng/dL (<=0.50); CARBON DIOXIDE,CO2 > 45 mmol/L (21-32); ESTIMATED GFR 109 mL/min (>=60)
[2025-01-20 15:34] LABS: B-TYPE NATRIURETIC PEPTIDE,BNP 9 pg/ml (0-100)
== END 2025-01-20 16:55 | disposition home or self-care (01) ==
LOC: DL.ED 13:44
DX: R53.1 Weakness (principal); J44.9 Chronic obstructive pulmonary disease, unspecified; E46 Unspecified protein-calorie malnutrition; K21.9 Gastro-esophageal reflux disease without esophagitis; Z88.5 Allergy status to narcotic agent; Z88.8 Allergy status to other drugs, medicaments and biological substances; Z79.899 Other long term (current) drug therapy; Z90.710 Acquired absence of both cervix and uterus
CPT/HCPCS: 36415; 71045; 80053; 83605; 83735; 83880; 84484; 85025; 85610; 85730; 86140; 87040; 93005; 93010; 99284; 99285